=== PATIENT | female | born 1965 | race Caucasian/White ===

== ENCOUNTER 2018-10-23 13:07 | Outpatient (CLI) | payer OTHER ==
[2018-10-23 17:16] LABS: Anion Gap 11 mmol/L (10-20); BUN (Urea Nitrogen) 12 mg/dL (9.8-20.1); Calc. Creatinine Clearance 0 mL/min (70-130); Carbon Dioxide 31 mmol/L (22-29); Chloride 103 mmol/L (98-107); Estimated GFR-MDRD 84; Glucose 86 mg/dL (70-105); Potassium 3.9 mmol/L (3.5-5.1); Sodium 141 mmol/L (136-145)
[2018-10-23 17:20] LABS: Bacteria/HPF None Seen HPF (None Seen); Bilirubin Negative (Negative); Blood, Urine 2+ (Negative); Clarity Clear (Clear); Glucose, Urine (Dipstick) Normal (Negative); Leukocyte 75 Leu/uL (Negative); Mucous/LPF Rare LPF (<2+); Nitrite Negative (Negative); Protein, Urine (Dipstick) Negative (Neg-Trace); Squamous Epithelial 0-3 HPF (0-3); Urobilinogen Normal mg/dL (Less than 2); WBC/HPF 0-3 HPF (0-3)
--- NOTE | 2018-10-23 18:14 | CT ---
CT ABDOMEN AND PELVIS WITH AND WITHOUT CONTRAST WITH MULTIPLANAR RECONSTRUCTIONS: 10/23/2018 TECHNIQUE: A spiral CT of the abdomen and pelvis was performed in this patient with microscopic hematuria and a history of kidney stones. Axial slices were initially obtained without IV contrast. Following this, venous and delayed phase imaging of the kidneys was obtained. Multiplanar reconstructions were done afterwards. FINDINGS: The lung bases are clear. The liver, spleen, pancreas, adrenal glands, and abdominal aorta are unrem arkable in appearance. There is probably a subcentimeter cyst in the left lobe of the liver and of n o concern. Regarding the kidneys, no renal calculi are appreciated. There is no sign of renal mass or hydroneph rosis. There is no perinephric streaking. No ureteral calculi are seen. The urinary bladder is not very distended, but no calcifications are seen immediately in or around it. Thus, there are no find ings to explain the patient's hematuria. The bowel shows no distention. There is no wall thickening or pericolonic inflammation. No free air or free fluid is seen. CT of the pelvis shows no pelvic masses, fluid collections, or free fluid. IMPRESSION: 1. No significant abdominal or pelvic findings to explain hematuria. 2. Incidental finding of a small to medium sized hiatal hernia. POS: HOME
== END 2018-10-23 13:08 | disposition home or self-care (01) ==
LOC: BURCT 13:07
PROVIDERS: ATTEND Urology
DX: M54.5 Low back pain (principal); R31.29 Other microscopic hematuria; R35.0 Frequency of micturition; Z87.442 Personal history of urinary calculi; K44.9 Diaphragmatic hernia without obstruction or gangrene
CPT/HCPCS: 36415; 74178; 80048; 81001; 87086